=== PATIENT | female | born 1955 | race Caucasian/White ===

== ENCOUNTER → 2018-08-30 | Outpatient (CLI) | payer OTHER ==
--- NOTE | 2018-08-30 13:44 | PCVCIMAG ---
APPROVED REPORT Indications Stenosis Doppler Spectral Velocity Analysis PSV / EDVPSV / EDV ECA (R) 114 / 6 cm/sECA (L) 156 / 5 cm/s dICA (R) 52 / 14 cm/sdICA (L) 30 / 6 cm/s Dominique (R) 42 / 14 cm/smICA (L) 56 / 17 cm/s pICA (R) 66 / 9 cm/spICA (L) 52 / 11 cm/s Bulb (R) 48 / 4 cm/sBulb (L) 63 / 6 cm/s dCCA (R) 76 / 5 cm/sdCCA (L) 73 / 8 cm/s mCCA (R) 72 / 9 cm/smCCA (L) 97 / 6 cm/s Vert (R) 52 / 6 cm/sVert (L) 60 / 11 cm/s ICA/CCA 0.87 ICA/CCA 0.77 Findings The right carotid bulb has moderate calcified plaque. The right proximal internal carotid artery shows <40% stenosis. The right common carotid artery shows no significant stenosis. The right external carotid artery shows no significant stenosis. The left carotid bulb has mild plaque. The left proximal internal carotid artery shows no significant stenosis. The left common carotid artery shows no significant stenosis. The left external carotid artery shows >50% stenosis. Conclusion 1. Right internal carotid artery stenosis (<40%) 2. Left internal carotid artey plaquing 3. Antegrade vertebral flow
== END | disposition home or self-care (01) ==
LOC: PCVCIMAG 13:19
PROVIDERS: ATTEND Internal Medicine Cardiovascular Disease
DX: I65.23 Occlusion and stenosis of bilateral carotid arteries (principal); R55 Syncope and collapse; R09.89 Other specified symptoms and signs involving the circulatory and respiratory systems
CPT/HCPCS: 93880

== ENCOUNTER → 2018-09-08 | Outpatient (CLI) | payer OTHER ==
[~2018-09-08] MED LIST: ASPIRIN 325 MG TABLET ONE; BENZOCAINE ONE 20% MUCOSAL SPRAY.; CLOPIDOGREL BISULFATE 75 MG TABLET ONE; FAMOTIDINE 20 MG/2 ML VIAL ONE; FUROSEMIDE 40 MG/4 ML VIAL. ONE; HEPARIN for SUB-Q USE 5,000 UNIT/ML VIAL. SQ ONE; HYDROcodone/APAP 5/325MG 1 TAB TABLET ONE; IOHEXOL 350 MG/ML 100 ML VIAL. ONE; IOHEXOL 350 MG/ML 50 ML VIAL. ONE; IV NORMAL SALINE 1000ML BAG 1,000 ML ONE; LIDOCAINE 1% Multi-Dose 50 ML VIAL. ONE; LIDOCAINE 1%/EPI 1:100,000 20 ML VIAL. ONE; MIDAZOLAM HCL/PF 2 MG/2 ML VIAL. ONE; NITROGLYCERIN PREMIX 0 ML IV ONE; diphenhydrAMINE 50 MG/ML VIAL ONE; fentaNYL PF VIAL 100 MCG/2 ML VIAL ONE; hydrALAZINE 20 MG/ML VIAL. ONE; methylPREDNISolone SOD SUCC PF 125 MG/2 ML VIAL. ONE
--- NOTE | 2018-09-08 10:26 | PCVCIMAG ---
APPROVED REPORT Study performed: 09/08/2018 09:03:13 EXAM: Comprehensive 2D, Doppler, and color-flow Echocardiogram Patient Location: Echo lab Status: routine BSA: 1.75 HR: 73 bpm Rhythm: NSR Other Information Study Quality: Good Indications Aortic Valve Disease Mitral Valve Disease Echo Enhancing Agent Indication: Rule out Shunt Agent(s) / Amount(s) Used: Agitated Saline cc Procedure After obtaining informed consent, patient underwent transesophageal echo in the [employer] [facility]. Type of Sedation : Conscious Sedation Sedation was administered by Alejandrina Bansal RN. Sedation start time: 9:39 Case end Time: 9:55 Sedation was achieved intravenously with: Versed (3mg) Fentanyl (75mcg) Transesophageal probe was inserted and advanced into esophagus without difficulty by Alexis Coelho MD. Echo enhancement indication: R/O Septal defect. Echo enhancement agent administered: Agitated Saline The SABIHA was performed without complications. Throughout the procedure, the blood pressure, pulse oximetry, cardiac rhythm, and rate were monitored. The patient tolerated the procedure without adverse effects. Recovery from conscious sedation was uneventful and vital signs were stable. Left Ventricle The left ventricle is normal size. There is normal LV segmental wall motion. There is normal left ventricular wall thickness. Left ventricular systolic function is normal. The left ventricular ejection fraction is within the normal range. LVEF is 55-60%. Right Ventricle The right ventricle is normal size. The right ventricular systolic function is normal. Atria The left atrium size is normal. No thrombus is visualized in the left atrium or appendage. Interatrial septum is intact without evidence of ASD or PFO. Lipomatous hypertrophy of atrial septum The right atrium size is normal. Aortic Valve The aortic valve is normal in structure. Severe aortic regurgitation, predominantly central There is no aortic valvular stenosis. Mitral Valve Mild nonspecific thickening of anterior leaflet Moderate to moderately severe mitral regurgitation. No evidence of mitral valve stenosis. Tricuspid Valve The tricuspid valve is normal in structure. There is no tricuspid valve regurgitation noted. Pulmonic Valve The pulmonary valve is normal in structure. There is no pulmonic valvular regurgitation. Great Vessels The aortic root is normal in size. The ascending aorta is normal in size. IVC is normal in size and collapses >50% with inspiration. Pericardium There is no pericardial effusion. <Conclusion> Left ventricular systolic function is normal. There is normal LV segmental wall motion. LVEF is 55-60%. No thrombus is visualized in the left atrium or appendage. No shunting by contrast bubble injection. Lipomatous hypertrophy of atrial septum The aortic valve is normal in structure. Severe aortic regurgitation, predominantly central Mild nonspecific thickening of anterior leaflet. Moderate to moderately severe mitral regurgitation. There is no pericardial effusion.
--- NOTE | 2018-09-08 12:00 | PCVCINTER ---
EXAM: 1. AORTOGRAM AND BILATERAL ILIOFEMORAL ANGIOGRAM 2. BILATERAL RENAL ANGIOGRAPHY 3. RIGHT EXTERNAL ILIAC STENT PLACEMENT. 4. RIGHT COMMON FEMORAL VEIN SHEATH PLACEMENT. INDICATION: Peripheral arterial disease. Coronary artery disease. Right iliac artery dissection. Hypertension. Renal atherosclerosis. No prior catheter based angiographic study is available. A full diagnostic angiogram study is performed today and the decision to intervene is based on this diagnostic study. Need femoral venous access. PROCEDURE: Procedure and risks of angiography intervention is appropriate including limb loss stroke and were discussed with the patient's family and consent obtained. The patient's right groin was prepped in the normal sterile fashion. IV conscious sedation was used throughout procedure with appropriate monitoring from 10:30 AM through 11:30 AM. Ultrasound was used to interrogate the right groin and showed the right common femoral artery to be patent. A permanent spot film was obtained. Under ultrasound guidance access into the right common femoral artery was obtained and a 5 [place] sheath was placed. Through this a 5 [place] flush catheter was placed into the abdominal aorta at the level of the renal arteries and AP aortogram was performed. Catheter was positioned at the aortic bifurcation and bilateral iliofemoral angiography performed. Catheter was exchanged for a visceral catheter was placed into the right renal arteries and right renal angiograms obtained. Catheter was placed into the the left renal arteries and left renal angiograms were obtained. Ultrasound was used to interrogate the right groin and showed the right common femoral vein to be patent. A permanent spot film was obtained. Under ultrasound guidance access into the right common femoral vein was obtained and a 7 [place] sheath was placed. A small area of dissection in the proximal right external iliac artery was noted and because of this the patient was given 4000 units of heparin. Stent placement across the areas of high-grade stenosis in the right external iliac artery was carried out with a 12 x 80 Smart control stent with subsequent dilatation to 9.0 mm. Following this drug coated balloon angioplasty of the left artery was carried out with a DCB TOBACCO BLENDER catheter. Follow-up angiogram was performed. Catheters and wires removed. Dr. Sainz joined the procedure and he performed coronary angiography and right heart catheterization. Please see his separate dictation for full details. Sheath was removed and hemostasis obtained using the FISH device. No immediate complications. FINDINGS: Aortogram: There is one right and one left renal artery. Moderate tortuosity infrarenal abdominal aorta without significant stenosis. Iliofemoral angiography: Moderate ectasia right common iliac artery without significant stenosis. Minimal stenosis left common iliac artery. Both internal iliac arteries are patent. Left external iliac artery is patent. The right and left common femoral and profunda femoral arteries are patent. Visualized portions of the upper superficial femoral arteries are patent. Subsequent development of area of irregularity/dissection in the proximal right external iliac artery. Right renal artery: Moderate plaque proximal vessel causes 30% stenosis. No branch vessel stenosis. Left renal artery: Mild plaque proximal vessel does not cause significant stenosis. Right external iliac artery: Following procedure as above vessel shows good patency with no residual dissection. IMPRESSION: No flow-limiting renal artery stenosis. Ectasia right common iliac artery. Small area of dissection proximal right external iliac artery was treated with stent placement with good patency restored. LOC:[id number]
--- NOTE | 2018-09-08 16:36 | PCVCIMAG ---
EXAM: DUPLEX ULTRASOUND OF THE RIGHT GROIN INDICATION: Groin swelling and pain. FINDINGS: No pseudoaneurysm is present. The common femoral artery and vein are patent. No arteriovenous fistula is seen. IMPRESSION: Study is negative for pseudoaneurysm. Incidental note is made of 1.4 x 3.0 x 5.1 cm subcutaneous hematoma. LOC:[place] [id number]
--- NOTE | 2018-09-08 17:32 | PCVCINTER ---
APPROVED REPORT Study performed: 09/08/2018 10:49:19 Patient Details Patient Status: Out-Patient Room #: 1 The patient is a 62 year-old Female Event Personnel Emeli Sam MD, Nathaniel Krishna RT(R), Rolf Tinoco RN, Estrada Cao RN, Lucius Guzman RT(R)() Risk Factors Arterial HypertensionDysplipidemia (Type: 1), Hypercholesterolemia, Diabetes (Control: Oral)Last Creatanine 1.2Tobacco History (Former) Previous Procedures/Diagnoses Previous Vascular Surgery Procedure Narrative A Right Heart Catheterization was performed with a 7 Fr. Mazon-Nidia catheter and pressure were recorded. A 6F sheath was inserted into the right femoral artery. Coronary angiography was performed using coronary diagnostic catheters. The right coronary system was accessed and visualized with a JR4 catheter. The left coronary system was accessed and visualized with a JL4 catheter. The left ventricle was accessed and visualized with a Straight Pigtail catheter. Left ventriculogram was performed in WEINER projection. An aortogram of the descending aortaascending aortaascending aorta was performed. Closure device was deployed with a 6 Fr FISH. Hemostasis was obtained with manual pressure following sheath removal without any complications. The patient tolerated the procedure well and there were no complications associated with the procedure. There was no hematoma. Hemodynamics The right atrial mean pressure is 13 mmHg. The right ventricular pressure is 44/3 mmHg. The pulmonary artery pressure is 44/21 mmHg with a mean of 31 mmHg. The mean pulmonary capillary wedge pressure is 16 mmHg. The aortic pressure is 151/60 mmHg with a mean of 99 mmHg. The left ventricular pressure is 122/2 mmHg with a mean of 8 mmHg. Conclusion #1 left main large free of disease giving rise to LAD and circumflex #2 LAD extends around the apex widely patent at the large vessel. Mild irregularities are noted. #3 circumflex OM eccentric mid vessel lesion of 40% large OM branch however nondominant no occlusive disease 4 large dominant right coronary artery eccentric 40% mild diffuse disease giving rise to PDA and MO with a 30-40% proximal PDA lesion this is large in distribution #5 hyperdynamic LV function with mild to moderate mitral regurgitation. EF 65-70% #6 supravalvular aortogram reveals severe aortic insufficiency with mild aortic root dilatation. Recommendations and plan: Patient will be referred to CV surgery. Aortic valve replacement presumably. Further evaluation of mitral valve for possible repair, clip or continued observation post surgery
== END | disposition home or self-care (01) ==
LOC: PCVCIMAG 08:27
PROVIDERS: ATTEND Internal Medicine
DX: I77.72 Dissection of iliac artery (principal); I70.1 Atherosclerosis of renal artery; I25.10 Atherosclerotic heart disease of native coronary artery without angina pectoris; I70.292 Other atherosclerosis of native arteries of extremities, left leg; I10 Essential (primary) hypertension; I08.0 Rheumatic disorders of both mitral and aortic valves; Z87.891 Personal history of nicotine dependence; J44.9 Chronic obstructive pulmonary disease, unspecified; F32.9 Major depressive disorder, single episode, unspecified; E11.9 Type 2 diabetes mellitus without complications; K21.9 Gastro-esophageal reflux disease without esophagitis; E78.00 Pure hypercholesterolemia, unspecified; G47.33 Obstructive sleep apnea (adult) (pediatric); Z90.49 Acquired absence of other specified parts of digestive tract; Z90.710 Acquired absence of both cervix and uterus; Z98.890 Other specified postprocedural states; Z98.84 Bariatric surgery status; Z88.8 Allergy status to other drugs, medicaments and biological substances; Z86.79 Personal history of other diseases of the circulatory system; Z79.899 Other long term (current) drug therapy; M47.812 Spondylosis without myelopathy or radiculopathy, cervical region; Z79.84 Long term (current) use of oral hypoglycemic drugs
CPT/HCPCS: 36252; 37221; 75716; 76937; 93312; 93325; 93460; 93567; 93926; 99152; 99153; C1725; C1751; C1760; C1769; C1876; C1894; J0360; J1200; J1644; J1940; J2250; J2930; J3010; J3490; J7030; Q9967; 75630

== ENCOUNTER → 2018-09-13 | Outpatient (CLI) | payer OTHER ==
[~2018-09-13] MED LIST changes: -ASPIRIN 325 MG TABLET ONE; -BENZOCAINE ONE 20% MUCOSAL SPRAY.; -CLOPIDOGREL BISULFATE 75 MG TABLET ONE; -FAMOTIDINE 20 MG/2 ML VIAL ONE; -FUROSEMIDE 40 MG/4 ML VIAL. ONE; -HEPARIN for SUB-Q USE 5,000 UNIT/ML VIAL. SQ ONE; -HYDROcodone/APAP 5/325MG 1 TAB TABLET ONE; -IOHEXOL 350 MG/ML 100 ML VIAL. ONE; -IOHEXOL 350 MG/ML 50 ML VIAL. ONE; -IV NORMAL SALINE 1000ML BAG 1,000 ML ONE; +LIDOCAINE 1% Multi-Dose 20 ML VIAL. ONE; -LIDOCAINE 1% Multi-Dose 50 ML VIAL. ONE; -LIDOCAINE 1%/EPI 1:100,000 20 ML VIAL. ONE; -MIDAZOLAM HCL/PF 2 MG/2 ML VIAL. ONE; -NITROGLYCERIN PREMIX 0 ML IV ONE; +THROMBIN TOPICAL 5,000 UNIT VIAL. ONE; -diphenhydrAMINE 50 MG/ML VIAL ONE; -fentaNYL PF VIAL 100 MCG/2 ML VIAL ONE; -hydrALAZINE 20 MG/ML VIAL. ONE; -methylPREDNISolone SOD SUCC PF 125 MG/2 ML VIAL. ONE
--- NOTE | 2018-09-13 22:05 | PCVCINTER ---
EXAM: ULTRASOUND GUIDED THROMBIN INJECTION OF RIGHT GROIN PSEUDOANEURYSM INDICATION: Groin pseudoaneurysm following catheterization procedure. PROCEDURE: Procedure and risks of ultrasound guided thrombin injection of the groin pseudoaneurysm were discussed with the patient and consent obtained. Risks included but were not limited to bleeding, infection, vascular thrombosis, allergic reaction, and limb loss. The right groin was prepped and draped in the normal sterile fashion. Under ultrasound guidance I carefully placed a 20 g spinal needle into the center of the pseudoaneurysm cavity and gently instilled the minimal amount of thrombin solution needed to arrest flow in the cavity under direct color-flow imaging. Needle was removed. Normal arterial and venous flow was documented in the common femoral artery and vein, respectively. No immediate complications. FINDINGS: Technically satisfactory ultrasound guided thrombin injection of the groin pseudoaneurysm. No flow in the pseudoaneurysm remains. Good flow in the adjacent [place] femoral artery and vein is present. Distal pulses are stable compared with preprocedure. IMPRESSION: Right groin pseudoaneurysm injection was satisfactory as reviewed above. LOC:OFFICE
--- NOTE | 2018-09-13 22:07 | PCVCIMAG ---
EXAM: DUPLEX ULTRASOUND OF THE RIGHT GROIN INDICATION: Groin swelling and pain. FINDINGS: There is a 2.3 x 2.5 x 4.6 cm pseudoaneurysm anterior to the lower right common femoral artery. Additionally there is a 1.3 x 2.6 x 4.0 cm subcutaneous hematoma more laterally. The common femoral artery and vein are patent. No arteriovenous fistula is seen. IMPRESSION: Right groin pseudoaneurysm as detailed above. LOC:OFFICE
== END | disposition home or self-care (01) ==
LOC: PCVCIMAG 14:42
PROVIDERS: ATTEND Internal Medicine Cardiovascular Disease
DX: I72.8 Aneurysm of other specified arteries (principal); I10 Essential (primary) hypertension; J44.9 Chronic obstructive pulmonary disease, unspecified; F32.9 Major depressive disorder, single episode, unspecified; E11.9 Type 2 diabetes mellitus without complications; K21.9 Gastro-esophageal reflux disease without esophagitis; E78.00 Pure hypercholesterolemia, unspecified; G47.33 Obstructive sleep apnea (adult) (pediatric); Z90.49 Acquired absence of other specified parts of digestive tract; Z98.84 Bariatric surgery status; Z90.710 Acquired absence of both cervix and uterus; Z98.890 Other specified postprocedural states; Z87.891 Personal history of nicotine dependence; I35.1 Nonrheumatic aortic (valve) insufficiency; Z88.8 Allergy status to other drugs, medicaments and biological substances; Z79.899 Other long term (current) drug therapy; Z79.84 Long term (current) use of oral hypoglycemic drugs
CPT/HCPCS: 36002; 76942; 93926

== ENCOUNTER → 2018-09-14 | Outpatient (CLI) | payer OTHER ==
--- NOTE | 2018-09-14 14:00 | PCVCIMAG ---
EXAM: DUPLEX ULTRASOUND OF THE RIGHT GROIN INDICATION: Groin swelling and pain. FINDINGS: No pseudoaneurysm is present. The common femoral artery and vein are patent. No arteriovenous fistula is seen. IMPRESSION: Study is negative for pseudoaneurysm. Since yesterday pseudoaneurysm has resolved following thrombin injection. LOC:[id number]
== END | disposition home or self-care (01) ==
LOC: PCVCIMAG 13:45
PROVIDERS: ATTEND Internal Medicine Cardiovascular Disease
DX: R10.31 Right lower quadrant pain (principal); R19.03 Right lower quadrant abdominal swelling, mass and lump; Z86.79 Personal history of other diseases of the circulatory system
CPT/HCPCS: 93926